=== PATIENT | female | born 1960 | race Caucasian/White ===

== ENCOUNTER 2021-11-11 13:25 | Inpatient (IN) | payer OTHER, MEDICARE ==
[~2021-11-11 13:25] MED LIST: Iopamidol 300 61% 100 ML VIAL FS ONE
[2021-11-11 14:12] LABS: #Eosinphils 0.1 10x3/uL (0.0-0.5); #Monocytes 0.2 10x3/uL (0.0-1.1); #Neutrophils 3.2 10x3/uL (1.5-8.4); %Basophils 0.7 % (0.0-2.0); %Eosinophils 1.3 % (0.0-6.0); %Lymphocytes 20.8 % (18.0-47.0); %Monocytes 4.3 % (0.0-10.0); %Neutrophils 72.5 % (40.0-75.0); Mean Corpuscular HGB CONC 32.2 g/dL (32.0-36.0); Mean Corpuscular Hemoglobin 27.9 pg (27.0-33.0); Mean Corpuscular Volume 86.9 fl (81.6-98.3); Mean Platelet Volume 9.2 fl (7.4-10.4); Platelet Count 384 10x3/uL (150-450); RBC Distribution Width 17.7 % (11.5-14.5); Red Blood Cell (RBC) Count 3.58 10x6/uL (3.90-5.03); White Blood Cell (WBC) Count 4.5 10x3/uL (3.5-10.5)
[2021-11-11 14:31] LABS: Acetaminophen Less than 10.0 mcg/mL (10.0-30.0); Alcohol Less than 10 mg/dL (Less than 10); Salicylate Less than 8.0 mg/dL (15.0-30.0)
[2021-11-11 14:32] LABS: ALT (SGPT) 197 U/L (8-55); AST (SGOT) 129 U/L (5-34); Albumin 3.6 g/dL (3.4-4.8); Alkaline Phosphatase 94 U/L (40-110); Anion Gap 17 mmol/L (10-20); BUN (Urea Nitrogen) 8 mg/dL (9.8-20.1); Bilirubin, Total 0.6 mg/dL (0.2-1.2); Calc. Creatinine Clearance 0 mL/min (70-130); Calcium 8.3 mg/dL (7.8-10.44); Carbon Dioxide 26 mmol/L (23-31); Chloride 90 mmol/L (98-107); Globulin 2.6 g/dL (2.4-3.5); Glucose 72 mg/dL (80-115); Potassium 4.2 mmol/L (3.5-5.1); Protein, Total 6.2 g/dL (5.8-8.1); Sodium 129 mmol/L (136-145)
[2021-11-11 14:33] LABS: Lipase 6 U/L (8-78)
[2021-11-11] MEDS ORDERED: Morphine 4 MG/ML VIAL ONE (14:40)
[2021-11-11] MEDS ORDERED: Ondansetron PF 4 MG/2 ML Vial ONE (14:40)
[2021-11-11 14:51] LABS: CKMB 2.2 ng/mL (0-6.6)
[2021-11-11] MEDS ORDERED: Aspirin 325 MG TAB ONE (15:45)
[2021-11-11] MEDS ORDERED: Aspirin 81 mg Enteric Coated Tablet ONE (15:48)
[2021-11-11 17:08] LABS: Bilirubin Neg (Negative); Blood, Urine Negative (Negative); Clarity Clear (Clear); Glucose, Urine (Dipstick) Normal (Negative); Ketone, Urine 50 mg/dL (Negative); Leukocyte Negative (Negative); Nitrite Negative (Negative); Protein, Urine (Dipstick) 30 mg/dl (Neg-Trace); Urobilinogen Normal mg/dL (Less than 2)
[2021-11-11 17:16] LABS: Amphetamine Not Detected (NotDetected); Bacteria/HPF None Seen HPF (None Seen); Barbiturates Screen Not Detected (NotDetected); Benzodiazepine Screen Not Detected (NotDetected); Cocaine Metabolite Screen Not Detected (NotDetected); Methadone Not Detected (NotDetected); Methamphetamine Not Detected (NotDetected); Opiate Screen Detected (NotDetected); Oxycodone Screen Not Detected (NotDetected); Phencyclidine (PCP) Not Detected (NotDetected); RBC/HPF 0-3 HPF (0-3); Squamous Epithelial 0-3 HPF (0-3); THC/Cannabinoid Screen Not Detected (NotDetected); Tricyclic Screen Not Detected (NotDetected); WBC/HPF 0-3 HPF (0-3)
[2021-11-11] MEDS ORDERED: Ondansetron PF 4 MG/2 ML Vial IVP PRN (19:29)
[2021-11-11] MEDS ORDERED: Ondansetron ODT 4 MG TAB PO PRN (19:29)
[2021-11-11] MEDS ORDERED: Nitroglycerin 0.4 MG TAB (25 Tab Bottle) SL PRN (19:32)
[2021-11-11] MEDS ORDERED: hydrALAZINE 20 MG/ML VIAL SLOW IVP PRN (19:33)
[2021-11-11] MEDS ORDERED: Electrolyte Replacement Protocol 1 EACH FS SCH (19:45)
[2021-11-11 19:52] VITALS: BMI 20.5
[2021-11-11] MEDS ORDERED: Piperacillin/Tazobactam 3.375 GM in Sodium Chloride 0.9% 100 ML IVPB SCH (20:00)
[2021-11-11 20:37] LABS: CKMB 2.4 ng/mL (0-6.6)
[2021-11-11] MEDS: Atorvastatin Calcium 40 MG TAB PO SCH (20:48)
[2021-11-11] MEDS ORDERED: Ibuprofen 400 MG TAB PO SCH (21:45)
[2021-11-12] MEDS: Piperacillin/Tazobactam 3.375 GM in Sodium Chloride 0.9% 100 ML IVPB SCH ×3 (03:25→21:22)
[2021-11-12 04:55] LABS: #Eosinphils 0.1 10x3/uL (0.0-0.5); #Monocytes 0.3 10x3/uL (0.0-1.1); #Neutrophils 2.4 10x3/uL (1.5-8.4); %Basophils 0.7 % (0.0-2.0); %Lymphocytes 33.5 % (18.0-47.0); %Monocytes 6.1 % (0.0-10.0); %Neutrophils 56.5 % (40.0-75.0); Hemoglobin 9.4 g/dL (12.0-15.5); Mean Corpuscular HGB CONC 32.8 g/dL (32.0-36.0); Mean Corpuscular Hemoglobin 27.8 pg (27.0-33.0); Mean Corpuscular Volume 84.9 fl (81.6-98.3); Mean Platelet Volume 9.1 fl (7.4-10.4); Platelet Count 364 10x3/uL (150-450); RBC Distribution Width 17.9 % (11.5-14.5); Red Blood Cell (RBC) Count 3.38 10x6/uL (3.90-5.03); White Blood Cell (WBC) Count 4.3 10x3/uL (3.5-10.5)
[2021-11-12 05:07] LABS: ALT (SGPT) 146 U/L (8-55); AST (SGOT) 81 U/L (5-34); Albumin 3.3 g/dL (3.4-4.8); Alkaline Phosphatase 83 U/L (40-110); Anion Gap 16 mmol/L (10-20); BUN (Urea Nitrogen) 8 mg/dL (9.8-20.1); Bilirubin, Total 0.5 mg/dL (0.2-1.2); Calc. Creatinine Clearance 64 mL/min (70-130); Calcium 8.4 mg/dL (7.8-10.44); Carbon Dioxide 27 mmol/L (23-31); Cardiac Risk 4.9 (Less than 4.5); Chloride 95 mmol/L (98-107); Cholesterol 194 mg/dl (< 200 Desired); Globulin 2.8 g/dL (2.4-3.5); Glucose 78 mg/dL (80-115); HDL Cholesterol 40 mg/dL (>60 Neg Risk); LDL Cholesterol, Calculated 119 mg/dL; Potassium 3.6 mmol/L (3.5-5.1); Protein, Total 6.1 g/dL (5.8-8.1); Sodium 134 mmol/L (136-145); Triglycerides 177 mg/dL (Less than 150)
[2021-11-12] MEDS ORDERED: Magnesium 2 GM/50 ML(in water) 2 GM in Premix Bag 1 BAG IVPB SCH (05:30)
[2021-11-12] MEDS ORDERED: Iopamidol 370 76% 100 ML VIAL ONE (09:09)
[2021-11-12] MEDS ORDERED: Nebivolol HCl 5 MG TAB PO SCH (10:45)
[2021-11-12] MEDS ORDERED: Citalopram 20 MG TAB PO SCH (10:45)
[2021-11-12] MEDS: Aspirin 81 mg Enteric Coated Tablet PO SCH (10:53)
[2021-11-12] MEDS: Enoxaparin Sodium 40 MG/0.4 ML SYRINGE SC SCH (10:53)
[2021-11-12] MEDS: Nicotine 21 MG PATCH TD SCH (10:53)
[2021-11-12] MEDS ORDERED: Acetaminophen 325 MG TAB PO PRN (11:42)
[2021-11-12 12:34] LABS: Hemoglobin A1c 5.3 % (4.0-6.0)
[2021-11-12] MEDS: Dicyclomine 10 MG CAP PO SCH ×2 (14:24→21:29)
[2021-11-12] MEDS: tiZANidine HCl 4 MG TAB PO SCH ×2 (14:24→21:28)
[2021-11-12] MEDS ORDERED: Sodium Chloride 0.9% 500 ML IV SCH ×2 (15:45→17:45)
[2021-11-12 16:24] LABS: SARS-CoV-2 PCR by NAA Not Detected (NotDetected)
[2021-11-12] MEDS: Morphine 2 MG/ML VIAL SLOW IVP PRN (20:26)
[2021-11-12] MEDS: Pregabalin 50 MG CAP PO SCH (21:27)
[2021-11-12] MEDS: Morphine ER 15 MG TAB PO SCH (21:30)
[2021-11-12] MEDS: Atorvastatin Calcium 40 MG TAB PO SCH (21:39)
[2021-11-13] MEDS ORDERED: Ketorolac Tromethamine 30 MG/ML VIAL IVP SCH (02:45)
[2021-11-13] MEDS: Piperacillin/Tazobactam 3.375 GM in Sodium Chloride 0.9% 100 ML IVPB SCH ×3 (03:45→20:59)
[2021-11-13 04:49] LABS: ALT (SGPT) 98 U/L (8-55); AST (SGOT) 48 U/L (5-34); Albumin 2.9 g/dL (3.4-4.8); Alkaline Phosphatase 72 U/L (40-110); Anion Gap 13 mmol/L (10-20); BUN (Urea Nitrogen) 13 mg/dL (9.8-20.1); Bilirubin, Total 0.3 mg/dL (0.2-1.2); Calc. Creatinine Clearance 52 mL/min (70-130); Carbon Dioxide 26 mmol/L (23-31); Chloride 99 mmol/L (98-107); Globulin 2.3 g/dL (2.4-3.5); Glucose 73 mg/dL (80-115); Iron 34 ug/dL (50-170); Iron Binding Capacity, Total 246 mcg/dL (265-497); Potassium 3.8 mmol/L (3.5-5.1); Protein, Total 5.2 g/dL (5.8-8.1); Sodium 134 mmol/L (136-145)
[2021-11-13 04:59] LABS: #Basophils 0.1 10x3/uL (0.0-0.2); #Eosinphils 0.1 10x3/uL (0.0-0.5); #Monocytes 0.3 10x3/uL (0.0-1.1); #Neutrophils 2.2 10x3/uL (1.5-8.4); %Basophils 1.1 % (0.0-2.0); %Lymphocytes 37.6 % (18.0-47.0); %Monocytes 7.1 % (0.0-10.0); %Neutrophils 50.7 % (40.0-75.0); Hemoglobin 7.7 g/dL (12.0-15.5); Mean Corpuscular HGB CONC 32.4 g/dL (32.0-36.0); Mean Corpuscular Hemoglobin 28.2 pg (27.0-33.0); Mean Corpuscular Volume 87.2 fl (81.6-98.3); Mean Platelet Volume 9.3 fl (7.4-10.4); Platelet Count 319 10x3/uL (150-450); RBC Distribution Width 18.3 % (11.5-14.5); Red Blood Cell (RBC) Count 2.73 10x6/uL (3.90-5.03); White Blood Cell (WBC) Count 4.4 10x3/uL (3.5-10.5)
[2021-11-13 05:04] LABS: Free T4 (Free Thyroxine) 0.54 ng/dL (0.70-1.48)
[2021-11-13] MEDS: Levothyroxine Sodium 125 MCG TAB PO SCH (05:41)
[2021-11-13 08:25] LABS: Hep B Surf Ag NonReactive S/CO (NonReactive)
[2021-11-13 08:26] LABS: HBSAg Index 0.15 S/CO (0-0.99)
[2021-11-13] MEDS ORDERED: Clopidogrel Bisulfate 75 MG TAB PO SCH (09:00)
[2021-11-13] MEDS ORDERED: Nebivolol HCl 5 MG TAB PO SCH (09:00)
[2021-11-13] MEDS: Nicotine 21 MG PATCH TD SCH (09:49)
[2021-11-13] MEDS: Citalopram 20 MG TAB PO SCH (09:50)
[2021-11-13] MEDS: Pregabalin 50 MG CAP PO SCH ×2 (09:51→21:01)
[2021-11-13] MEDS: tiZANidine HCl 4 MG TAB PO SCH ×3 (09:52→21:01)
[2021-11-13] MEDS: Morphine ER 15 MG TAB PO SCH ×2 (09:52→21:00)
[2021-11-13] MEDS: Aspirin 81 mg Enteric Coated Tablet PO SCH (09:53)
[2021-11-13] MEDS: Dicyclomine 10 MG CAP PO SCH ×3 (09:54→21:00)
[2021-11-13] MEDS: Enoxaparin Sodium 40 MG/0.4 ML SYRINGE SC SCH (09:55)
[2021-11-13] MEDS: Morphine 2 MG/ML VIAL SLOW IVP PRN (12:23)
[2021-11-13 12:45] LABS: Vitamin B12 383 pg/mL (211-911)
[2021-11-13 12:57] LABS: HBCM Index 0.06 S/CO (0-0.79); Hep A IgM AB Non-Reactive (NonReactive); Hep A IgM S/CO 0.25 S/CO (0-0.79); Hep C IgG Ab Non-Reactive (NonReactive); Hep C Index 0.09 S/CO (0-0.79); Hepatitis B Core IgM Abs Non-Reactive (NonReactive)
[2021-11-13] MEDS: Atorvastatin Calcium 40 MG TAB PO SCH (21:00)
[2021-11-13] MEDS: diphenhydrAMINE 25 MG CAP PO SCH (22:42)
[2021-11-14] MEDS: diphenhydrAMINE 25 MG CAP PO SCH ×2 (02:06→02:37)
[2021-11-14] MEDS ORDERED: diphenhydrAMINE 25 MG CAP PO SCH (02:45)
[2021-11-14] MEDS: Piperacillin/Tazobactam 3.375 GM in Sodium Chloride 0.9% 100 ML IVPB SCH ×3 (04:20→20:58)
[2021-11-14] MEDS: Levothyroxine Sodium 125 MCG TAB PO SCH (06:41)
[2021-11-14] MEDS: Pregabalin 50 MG CAP PO SCH ×2 (09:05→20:59)
[2021-11-14] MEDS: Morphine ER 15 MG TAB PO SCH ×2 (09:06→21:00)
[2021-11-14] MEDS: Citalopram 20 MG TAB PO SCH (09:06)
[2021-11-14] MEDS: tiZANidine HCl 4 MG TAB PO SCH ×3 (09:06→21:01)
[2021-11-14] MEDS: Pantoprazole 40 MG VIAL IVP SCH (09:07)
[2021-11-14] MEDS: Enoxaparin Sodium 40 MG/0.4 ML SYRINGE SC SCH ×2 (09:07→15:28)
[2021-11-14] MEDS: Dicyclomine 10 MG CAP PO SCH ×3 (09:07→21:01)
[2021-11-14] MEDS: Aspirin 81 mg Enteric Coated Tablet PO SCH (09:08)
[2021-11-14 09:15] LABS: #Eosinphils 0.3 10x3/uL (0.0-0.5); #Monocytes 0.5 10x3/uL (0.0-1.1); #Neutrophils 4.8 10x3/uL (1.5-8.4); %Basophils 0.5 % (0.0-2.0); %Eosinophils 4.1 % (0.0-6.0); %Lymphocytes 25.2 % (18.0-47.0); %Monocytes 6.2 % (0.0-10.0); %Neutrophils 63.7 % (40.0-75.0); Hemoglobin 8.5 g/dL (12.0-15.5); Mean Corpuscular HGB CONC 31.4 g/dL (32.0-36.0); Mean Corpuscular Hemoglobin 28.5 pg (27.0-33.0); Mean Corpuscular Volume 90.9 fl (81.6-98.3); Mean Platelet Volume 9.3 fl (7.4-10.4); Platelet Count 369 10x3/uL (150-450); RBC Distribution Width 18.5 % (11.5-14.5); Red Blood Cell (RBC) Count 2.98 10x6/uL (3.90-5.03); White Blood Cell (WBC) Count 7.5 10x3/uL (3.5-10.5)
[2021-11-14 09:30] LABS: ALT (SGPT) 95 U/L (8-55); AST (SGOT) 48 U/L (5-34); Albumin 3.5 g/dL (3.4-4.8); Alkaline Phosphatase 80 U/L (40-110); Anion Gap 11 mmol/L (10-20); BUN (Urea Nitrogen) 13 mg/dL (9.8-20.1); Bilirubin, Total 0.3 mg/dL (0.2-1.2); Calc. Creatinine Clearance 57 mL/min (70-130); Calcium 8.4 mg/dL (7.8-10.44); Carbon Dioxide 30 mmol/L (23-31); Chloride 95 mmol/L (98-107); Globulin 2.9 g/dL (2.4-3.5); Glucose 72 mg/dL (80-115); Potassium 3.7 mmol/L (3.5-5.1); Protein, Total 6.4 g/dL (5.8-8.1); Sodium 132 mmol/L (136-145)
[2021-11-14] MEDS: Nicotine 21 MG PATCH TD SCH (19:23)
[2021-11-14] MEDS: Atorvastatin Calcium 40 MG TAB PO SCH (21:01)
[2021-11-15] MEDS: Piperacillin/Tazobactam 3.375 GM in Sodium Chloride 0.9% 100 ML IVPB SCH ×3 (04:29→21:05)
[2021-11-15] MEDS: Morphine 2 MG/ML VIAL SLOW IVP PRN ×3 (05:01→13:40)
[2021-11-15] MEDS: Levothyroxine Sodium 125 MCG TAB PO SCH (05:31)
[2021-11-15] MEDS ORDERED: Morphine 4 MG/ML VIAL SLOW IVP SCH (06:15)
[2021-11-15] MEDS ORDERED: Iopamidol 300 61% 100 ML VIAL FS ONE (09:23)
[2021-11-15] MEDS ORDERED: Docusate 100 MG CAP PO SCH (12:00)
[2021-11-15] MEDS: Enoxaparin Sodium 40 MG/0.4 ML SYRINGE SC SCH (13:40)
[2021-11-15] MEDS: Citalopram 20 MG TAB PO SCH (13:41)
[2021-11-15] MEDS: tiZANidine HCl 4 MG TAB PO SCH ×3 (13:41→21:04)
[2021-11-15] MEDS: Dicyclomine 10 MG CAP PO SCH ×3 (13:41→21:04)
[2021-11-15] MEDS: Morphine ER 15 MG TAB PO SCH ×2 (13:41→21:05)
[2021-11-15] MEDS: Pregabalin 50 MG CAP PO SCH ×2 (13:42→21:04)
[2021-11-15] MEDS: Nicotine 21 MG PATCH TD SCH (13:42)
[2021-11-15] MEDS: Aspirin 81 mg Enteric Coated Tablet PO SCH (13:43)
[2021-11-15] MEDS: Pantoprazole 40 MG VIAL IVP SCH (15:56)
[2021-11-15] MEDS: Atorvastatin Calcium 40 MG TAB PO SCH (21:04)
[2021-11-15] MEDS ORDERED: Sodium Chloride 0.9% 500 ML IV SCH (23:15)
[2021-11-16] MEDS: Piperacillin/Tazobactam 3.375 GM in Sodium Chloride 0.9% 100 ML IVPB SCH ×3 (04:40→21:10)
[2021-11-16 05:05] LABS: Hemoglobin 7.6 g/dL (12.0-15.5); Mean Corpuscular HGB CONC 32.1 g/dL (32.0-36.0); Mean Corpuscular Hemoglobin 28.3 pg (27.0-33.0); Mean Corpuscular Volume 88.1 fl (81.6-98.3); Mean Platelet Volume 9.5 fl (7.4-10.4); Platelet Count 369 10x3/uL (150-450); RBC Distribution Width 18.6 % (11.5-14.5); Red Blood Cell (RBC) Count 2.69 10x6/uL (3.90-5.03)
[2021-11-16 05:27] LABS: Anion Gap 11 mmol/L (10-20); BUN (Urea Nitrogen) 13 mg/dL (9.8-20.1); Calc. Creatinine Clearance 64 mL/min (70-130); Calcium 8.4 mg/dL (7.8-10.44); Carbon Dioxide 28 mmol/L (23-31); Chloride 100 mmol/L (98-107); Glucose 72 mg/dL (80-115); Sodium 135 mmol/L (136-145)
[2021-11-16] MEDS: Levothyroxine Sodium 125 MCG TAB PO SCH (05:46)
[2021-11-16] MEDS: Nicotine 21 MG PATCH TD SCH (09:44)
[2021-11-16] MEDS: Pregabalin 50 MG CAP PO SCH ×2 (09:44→21:11)
[2021-11-16] MEDS: tiZANidine HCl 4 MG TAB PO SCH ×3 (09:45→21:11)
[2021-11-16] MEDS: Morphine ER 15 MG TAB PO SCH ×2 (09:45→21:11)
[2021-11-16] MEDS: Enoxaparin Sodium 40 MG/0.4 ML SYRINGE SC SCH (09:46)
[2021-11-16] MEDS: Dicyclomine 10 MG CAP PO SCH ×3 (09:46→21:11)
[2021-11-16] MEDS: Citalopram 20 MG TAB PO SCH (09:46)
[2021-11-16] MEDS: Aspirin 81 mg Enteric Coated Tablet PO SCH (09:47)
[2021-11-16] MEDS: Morphine 2 MG/ML VIAL SLOW IVP PRN (16:56)
[2021-11-16] MEDS ORDERED: GoLYTELY 4,000 ml Bottle PO SCH (17:00)
[2021-11-16] MEDS: Atorvastatin Calcium 40 MG TAB PO SCH (21:11)
[2021-11-17] MEDS ORDERED: diphenhydrAMINE 50 MG/ML VIAL IVP SCH (00:30)
[2021-11-17] MEDS: Piperacillin/Tazobactam 3.375 GM in Sodium Chloride 0.9% 100 ML IVPB SCH ×2 (03:18→11:30)
[2021-11-17] MEDS: Morphine 2 MG/ML VIAL SLOW IVP PRN (03:30)
[2021-11-17] MEDS: Levothyroxine Sodium 125 MCG TAB PO SCH (05:41)
[2021-11-17] MEDS ORDERED: Levothyroxine Sodium 75 MCG TAB PO SCH (06:00)
[2021-11-17] MEDS: Enoxaparin Sodium 40 MG/0.4 ML SYRINGE SC SCH (08:34)
[2021-11-17] MEDS: Aspirin 81 mg Enteric Coated Tablet PO SCH (08:34)
[2021-11-17] MEDS: Dicyclomine 10 MG CAP PO SCH ×2 (08:41→15:38)
[2021-11-17] MEDS: Citalopram 20 MG TAB PO SCH (08:41)
[2021-11-17] MEDS: Morphine ER 15 MG TAB PO SCH (08:42)
[2021-11-17] MEDS: tiZANidine HCl 4 MG TAB PO SCH ×2 (08:42→15:38)
[2021-11-17] MEDS: Nicotine 21 MG PATCH TD SCH (08:42)
[2021-11-17] MEDS: Pregabalin 50 MG CAP PO SCH (08:42)
[2021-11-17] MEDS ORDERED: Midazolam HCl 2 mg/2 ml Vial ONE (14:36)
[2021-11-17] MEDS ORDERED: PROPOFOL 20 ML ONE ×2 (14:36→15:02)
[2021-11-17] MEDS ORDERED: Lidocaine 1% PF 5 ML VIAL ONE (14:42)
[2021-11-17 19:41] VITALS: TEMP 98.1
[2021-11-17 19:42] VITALS: BP 117/55
== END 2021-11-17 19:05 | disposition home or self-care (01) | DRG 391 ==
LOC: CSHERS 13:25 → CSHTELE 19:45 → OBSVTOIN 11-12 15:24
PROVIDERS: ADMIT Student in an Organized Health Care Education/Training Program; ATTEND Internal Medicine
PROC: 0DJD8ZZ Inspection of Lower Intestinal Tract, Via Natural or Artificial Opening Endoscopic (ICD-10-PCS; principal; 2021-11-17)
PROC: 0DJ08ZZ Inspection of Upper Intestinal Tract, Via Natural or Artificial Opening Endoscopic (ICD-10-PCS; 2021-11-17)
DX: K52.9 Noninfective gastroenteritis and colitis, unspecified (principal); G93.41 Metabolic encephalopathy; E87.1 Hypo-osmolality and hyponatremia; N17.9 Acute kidney failure, unspecified; E44.0 Moderate protein-calorie malnutrition; R64 Cachexia; I65.21 Occlusion and stenosis of right carotid artery; Z20.822 Contact with and (suspected) exposure to COVID-19; I10 Essential (primary) hypertension; E03.9 Hypothyroidism, unspecified; K21.9 Gastro-esophageal reflux disease without esophagitis; G89.4 Chronic pain syndrome; R11.0 Nausea; K86.89 Other specified diseases of pancreas; R74.01 Elevation of levels of liver transaminase levels; D63.8 Anemia in other chronic diseases classified elsewhere; F32.A Depression, unspecified; R77.8 Other specified abnormalities of plasma proteins; F17.210 Nicotine dependence, cigarettes, uncomplicated; K57.30 Diverticulosis of large intestine without perforation or abscess without bleeding; I95.9 Hypotension, unspecified; Z90.49 Acquired absence of other specified parts of digestive tract; Z90.711 Acquired absence of uterus with remaining cervical stump; Z68.20 Body mass index [BMI] 20.0-20.9, adult
CPT/HCPCS: 36415; 36416; 70450; 70496; 70498; 70551; 71045; 74174; 74177; 74181; 80048; 80053; 80061; 80074; 80306; 80307; 81003; 81015; 82140; 82533; 82553; 82607; 82728; 82746; 83036; 83540; 83550; 83690; 83735; 83930; 83935; 84300; 84425; 84439; 84443; 84481; 84484; 85025; 85027; 93005; 93306; 93880; 94760; 96372; 96374; 96375; 96376; C9113; G0378; J0360; J1650; J1885; J2250; J2270; J2405; J2543; J2704; J3475; J3490; J7030; Q9967; U0003; U0005